=== PATIENT | male | born 1975 | race Caucasian/White ===

== ENCOUNTER 2023-11-20 00:06 | Emergency (ER) | payer OTHER ==
[2023-11-20 01:55] LABS: Absolute Basophils 0.1 K/uL (0-0.5); Absolute Eosinophils 0.2 K/uL (0-0.5); Absolute Lymphocytes (CBC) 1.8 K/uL (0.7-4.9); Absolute Monocytes 0.7 K/uL (0.1-1.3); Absolute Neutrophil 4.7 K/uL (1.8-8.0); Basophils % 1.3 % (0-1.3); Eosinophils % 2.9 % (0-4.4); Hematocrit 47.6 % (39.6-49.0); Hemoglobin 16.6 g/dL (13.6-17.9); Lymphocytes % 24.2 % (15.3-44.8); MCH 30.8 pg (27.0-35.0); MCHC 34.8 g/dL (32.0-36.0); MCV 88.7 fL (80-100); MPV 7.8 fL (7.6-11.3); Neutrophils % 62.6 % (41.7-73.7); Nucleated Red Blood Cells % 0.2 % (0-0); Platelets 242 thou/uL (152-406); Protime INR 1.07; RBC Red Blood Cell Count 5.37 M/uL (4.33-5.43)
[2023-11-20 02:09] LABS: ALT/SGPT 80 U/L (16-61); AST/SGOT 43 U/L (15-37); Albumin 3.8 g/dL (3.4-5.0); Albumin/Globulin Ratio 1.1 (1.1-1.8); Alkaline Phosphatase 91 U/L (45-117); Anion Gap 10.8 mEq/L (5.0-15.0); BUN Blood Urea Nitrogen 17 mg/dL (7-18); Bicarbonate 24 mEq/L (21-32); Bilirubin Direct 0.2 mg/dL (0-0.2); Bilirubin Indirect, Calculated 0.6 mg/dL (0.2-0.8); Bilirubin Total 0.8 mg/dL (0.2-1.0); Globulin 3.6 g/dL (2.3-3.5); Glomerular Filtration Rate 68 ml/min (=/>90); Glucose Level 141 mg/dL (74-106); Potassium 3.8 mEq/L (3.5-5.1); Protein, Total 7.4 g/dL (6.4-8.2); Sodium Level 136 mEq/L (136-145); Troponin High Sensitivity 7.2 pg/mL (<58.9)
[2023-11-20] MEDS ORDERED: lisinopriL 20 MG TAB ONE (02:18)
[2023-11-20] MEDS ORDERED: HYDRALAZINE HCL 10 MG TABLET ONE (02:18)
[2023-11-20] MEDS ORDERED: HYDRALAZINE HCL 20 MG/ML VIAL ONE (02:18)
[2023-11-20] MEDS ORDERED: AMLODIPINE 10 MG TAB ONE (02:18)
--- NOTE | 2023-11-20 02:23 | EDPHYS ---
Physician Documentation [facility] – [place], [place] Name: Bam Candelario Age: 48 yrs Sex: Male : 1975 Arrival Date: 11/20/2023 Time: 00:06 Bed 11 Private MD: PEPE Physician Usama Berry HPI: 11/19 01:57 This 48 yrs old Male presents to ER via Ambulatory with complaints of High yesica Blood Pressure. 01:57 The patient has elevated blood pressure and discovered this at home, with a home yesica device. Onset: The symptoms/episode began/occurred 3 day(s) ago. Modifying factors: The symptoms are aggravated by activity, The symptoms are alleviated by remaining still. Associated signs and symptoms: Pertinent positives: dizziness, headache. Severity of symptoms: At its worst the blood pressure was moderate, in the emergency department the blood pressure is unchanged. The patient has experienced similar episodes in the past, multiple times. hennessy, out of meds. Historical: - Allergies: 00:36 No Known Allergies; jb4 - PMHx: 00:36 HTN; kidney stones; jb4 - PSHx: 00:36 Kidney stone removal, stent placed; jb4 - Immunization history:: Adult Immunizations up to date. - Infectious Disease History:: Denies. - Social history:: Smoking status: Patient reports use of chewing tobacco. ROS: 01:58 Constitutional: Negative for fever, chills, and weight loss, Eyes: Negative for injury, yesica pain, redness, and discharge, ENT: Negative for injury, pain, and discharge, Neck: Negative for injury, pain, and swelling, Cardiovascular: Negative for chest pain, palpitations, and edema, Respiratory: Negative for shortness of breath, cough, wheezing, and pleuritic chest pain, Abdomen/GI: Negative for abdominal pain, nausea, vomiting, diarrhea, and constipation, Back: Negative for injury and pain, : Negative for injury, bleeding, discharge, and swelling, MS/Extremity: Negative for injury and deformity, Skin: Negative for injury, rash, and discoloration, Psych: Negative for depression, anxiety, suicide ideation, homicidal ideation, and hallucinations, Allergy/Immunology: Negative for hives, rash, and allergies, Endocrine: Negative for neck swelling, polydipsia, polyuria, polyphagia, and marked weight changes, Hematologic/Lymphatic: Negative for swollen nodes, abnormal bleeding, and unusual bruising, :58 Neuro: Positive for headache, Exam: :58 Constitutional: This is a well developed, well nourished patient who is awake, alert, yesica and in no acute distress. Head/Face: Normocephalic, atraumatic. Eyes: Pupils equal round and reactive to light, extra-ocular motions intact. Lids and lashes normal. Conjunctiva and sclera are non-icteric and not injected. Cornea within normal limits. Periorbital areas with no swelling, redness, or edema. ENT: Nares patent. No nasal discharge, no septal abnormalities noted. Tympanic membranes are normal and external auditory canals are clear. Oropharynx with no redness, swelling, or masses, exudates, or evidence of obstruction, uvula midline. Mucous membranes moist. Neck: Trachea midline, no thyromegaly or masses palpated, and no cervical lymphadenopathy. Supple, full range of motion without nuchal rigidity, or vertebral point tenderness. No Meningismus. Chest/axilla: Normal chest wall appearance and motion. Nontender with no deformity. No lesions are appreciated. Cardiovascular: Regular rate and rhythm with a normal S1 and S2. No gallops, murmurs, or rubs. Normal PMI, no JVD. No pulse deficits. Respiratory: Lungs have equal breath sounds bilaterally, clear to auscultation and percussion. No rales, rhonchi or wheezes noted. No increased work of breathing, no retractions or nasal flaring. Abdomen/GI: Soft, non-tender, with normal bowel sounds. No distension or tympany. No guarding or rebound. No evidence of tenderness throughout. Back: No spinal tenderness. No costovertebral tenderness. Full range of motion. Male : Normal genitalia with no discharge or lesions. Skin: Warm, dry with normal turgor. Normal color with no rashes, no lesions, and no evidence of cellulitis. MS/ Extremity: Pulses equal, no cyanosis. Neurovascular intact. Full, normal range of motion. Neuro: Awake and alert, GCS 15, oriented to person, place, time, and situation. Cranial nerves II-XII grossly intact. Motor strength 5/5 in all extremities. Sensory grossly intact. Cerebellar exam normal. Normal gait. Psych: Awake, alert, with orientation to person, place and time. Behavior, mood, and affect are within normal limits. 01:58 ECG was reviewed by the Attending Physician. Vital Signs: 00:34 BP 155 / 104; Pulse 79; Resp 16; Temp 97.9(TE); Pulse Ox 96% on R/A; Weight 104.33 kg jb4 (R); Height 6 ft. 1 in. (R); Pain 5/10; 02:00 BP 145 / 100; Pulse 63; Resp 17; Pulse Ox 100% on R/A; jb4 00:34 Body Mass Index 30.34 (104.33 kg, 185.42 cm) jb4 00:34 Pain Scale: Adult jb4 MDM: 00:33 Patient medically screened. [facility] 02:09 Differential diagnosis: hypertensive crisis, Malignant HTN, CVA, intracerebral yesica hemorrhage. Data reviewed: vital signs, nurses notes, lab test result(s), EKG, radiologic studies, plain films. Consideration of Admission/Observation Escalation of care including admission/observation considered. I considered the following discharge prescriptions or medication management in the emergency department Medications were administered in the Emergency Department. See MAR. Independent interpretation of the following test(s) in the Emergency Department EKG: See my EKG interpretation above. Test considered but Not performed: Ultrasound no 2 d echo. Historians other than the Patient: pt welll informed. Care significantly affected by the following chronic conditions: Hypertension, Obesity, kidney stones. 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 11/19 00:27 Order name: Basic Metabolic Panel; Complete Time: 02:38 yesica 11/19 00:27 Order name: CBC with Diff; Complete Time: 02:23 yesica 11/19 00:27 Order name: LFT's; Complete Time: 02:38 11/19 00:27 Order name: Magnesium; Complete Time: 02:38 11/19 00:27 Order name: NT PRO-BNP; Complete Time: 02:38 yesica 11/19 00:27 Order name: PT-INR; Complete Time: 01:57 11/19 00:27 Order name: Troponin HS; Complete Time: 02:38 [facility] 11/19 00:27 Order name: XRAY Chest (1 view) [facility] 11/19 00:27 Order name: EKG; Complete Time: 00:27 [facility] 11/19 00:27 Order name: Cardiac monitoring; Complete Time: 02:09 [facility] 11/19 00:27 Order name: EKG - Nurse/Tech; Complete Time: 02:09 [facility] 11/19 00:27 Order name: IV Saline Lock; Complete Time: 02:09 [facility] 11/19 00:27 Order name: Labs collected and sent; Complete Time: 02:09 [facility] 11/19 00:27 Order name: O2 Per Protocol; Complete Time: 02:13 [facility] 11/19 00:27 Order name: O2 Sat Monitoring; Complete Time: 02:13 [facility] EC:58 Rate is 61 beats/min. Rhythm is regular. QRS [place] is Normal. ME interval is normal. QRS yesica interval is normal. QT interval is normal. No Q waves. T waves are Normal. No ST changes noted. Clinical impression: NSR w/ Non-specific ST/T Changes and No evidence of ischemia. Interpreted by me. Reviewed by me. Administered Medications: 02:29 Not Given (Physician Discretion): [id number] mg IVP once pc2 02:29 Drug: hydrALAZINE PO 10 mg PO once Route: PO; pc2 02:29 Drug: Norvasc PO 10 mg PO once Route: PO; pc2 02:29 Drug: Lisinopril PO 20 mg PO once Route: PO; pc2 Disposition Summary: 11/20/23 02:23 Discharge Ordered Notes: Location: Home yesica Problem: new yesica Symptoms: have improved yesica Condition: Fair yesica Diagnosis - Essential (primary) hypertension yesica Followup: yesica - With: Private Physician - When: 2 - 3 days - Reason: Recheck today's complaints, Continuance of care, Re-evaluation by your physician Followup: yesica - With: Christiano Humphreys MD - When: 2 - 3 days - Reason: Recheck today's complaints, Re-evaluation by your physician Discharge Instructions: - Discharge Summary Sheet yesica - Hypertension, Adult yesica - Hypertension, Adult, [id number] yesica - How to Take Your Blood Pressure, [id number] yesica - Aspirin and Your Heart yesica - Managing Your Hypertension yesica Forms: - Medication Reconciliation Form yesica - Antibiotic Education yesica - Prescription Opioid Use yesica - Patient Portal Instructions yesica - Leadership Thank You Letter yesica Prescriptions: - Norvasc 10 mg Oral Tablet - take 1 tablet ORAL route once daily; 30 tablet; Refills: 0, Product Selection yesica Permitted - Lisinopril 20 mg Oral Tablet - take 1 tablet ORAL route once daily; 20 tablet; Refills: 0, Product Selection yesica Permitted Signatures: Dispatcher [employer] Usama Flores MD MD cha Bryson, James, RN RN jb4 Angelica Mercer, RN RN pc2
--- NOTE | 2023-11-20 02:23 | ER ---
Nurse's Notes [facility] Name: Bam Candelario Age: 48 yrs Sex: Male : 1975 Arrival Date: 11/20/2023 Time: 00:06 Bed 11 Private MD: Diagnosis: Essential (primary) hypertension Presentation: 11/19 00:34 Chief complaint: Patient states: I noticed I had high blood pressure with blurry vision jb4 and headache that started 2 hours ago. I have B/p meds but have been out and don't have a pcp. Coronavirus screen: At this time, the client does not indicate any symptoms associated with coronavirus-19. Ebola Screen: No symptoms or risks identified at this time. Initial Sepsis Screen: Does the patient meet any 2 criteria? No. Patient's initial sepsis screen is negative. Does the patient have a suspected source of infection? No. Patient's initial sepsis screen is negative. Risk Assessment: Do you want to hurt yourself or someone else? Patient reports no desire to harm self or others. Onset of symptoms was November 20, 2023. Transition of care: patient was not received from another setting of care. 00:34 Method Of Arrival: Ambulatory jb4 00:34 Acuity: GALA 3 jb4 Triage Assessment: 00:36 General: Appears in no apparent distress. uncomfortable, Behavior is calm, cooperative, jb4 appropriate for age. Pain: Complains of pain in forehead and left anglican Pain does not radiate. Pain currently is 5 out of 10 on a pain scale. Neuro: Level of Consciousness is awake, alert, obeys commands, Oriented to person, place, time, situation. Cardiovascular: Patient's skin is warm and dry. Respiratory: Airway is patent Respiratory effort is even, unlabored, Respiratory pattern is regular, symmetrical. Derm: Skin is intact, Skin is pink, warm \T\ dry. Musculoskeletal: Circulation, motion, and sensation intact. Range of motion: intact in all extremities. Historical: - Allergies: 00:36 No Known Allergies; jb4 - PMHx: 00:36 HTN; kidney stones; jb4 - PSHx: 00:36 Kidney stone removal, stent placed; jb4 - Immunization history:: Adult Immunizations up to date. - Infectious Disease History:: Denies. - Social history:: Smoking status: Patient reports use of chewing tobacco. Screenin:00 [facility] ED Fall Risk Assessment (Adult) History of falling in the last 3 months, jb4 including since admission No falls in past 3 months (0 pts) Confusion or Disorientation No (0 pts) Intoxicated or Sedated No (0 pts) Impaired Gait No (0 pts) Mobility Assist Device Used No (0 pt) Altered Elimination No (0 pt) Score/Fall Risk Level 0 - 2 = Low Risk Oriented to surroundings, Maintained a safe environment. Abuse screen: Denies threats or abuse. Nutritional screening: No deficits noted. Tuberculosis screening: No symptoms or risk factors identified. Assessment: 02:30 Reassessment: Patient appears in no apparent distress at this time. Patient and/or jb4 family updated on plan of care and expected duration. Pain level reassessed. Patient is alert, oriented x 3, equal unlabored respirations, skin warm/dry/pink. Vital Signs: 00:34 BP 155 / 104; Pulse 79; Resp 16; Temp 97.9(TE); Pulse Ox 96% on R/A; Weight 104.33 kg jb4 (R); Height 6 ft. 1 in. (R); Pain 5/10; 02:00 BP 145 / 100; Pulse 63; Resp 17; Pulse Ox 100% on R/A; jb4 00:34 Body Mass Index 30.34 (104.33 kg, 185.42 cm) jb4 00:34 Pain Scale: Adult jb4 ED Course: 00:09 Patient arrived in ED. jj6 00:27 Usama Berry MD is Attending Physician. yesica 00:36 Triage completed. jb4 00:36 Arm band placed on right wrist. jb4 01:10 XRAY Chest (1 view) In Process Unspecified. EDMS 01:38 Inserted saline lock: 20 gauge in right forearm, using aseptic technique. Blood oe collected. Flushed with 10 mL NS. 02:09 Basic Metabolic Panel Sent. oe 02:09 LFT's Sent. oe 02:10 Magnesium Sent. oe 02:10 NT PRO-BNP Sent. oe 02:10 Troponin HS Sent. oe 02:23 Christiano Humphreys MD is Referral Physician. yesica 03:00 Patient has correct armband on for positive identification. Bed in low position. Call jb4 light in reach. Side rails up X 1. Provided Education on: discharge instructions.. 03:00 No provider procedures requiring assistance completed. IV discontinued, intact, jb4 bleeding controlled, No redness/swelling at site. Pressure dressing applied. Administered Medications: : Not Given (Physician Discretion): [id number] mg IVP once pc2 : Drug: hydrALAZINE PO 10 mg PO once Route: PO; pc2 : Drug: Norvasc PO 10 mg PO once Route: PO; pc2 : Drug: Lisinopril PO 20 mg PO once Route: PO; pc2 Medication: 02:00 VIS not applicable for this client. jb4 Outcome: 02:23 Discharge ordered by . yesica 03:00 Discharged to home ambulatory, jb4 03:00 Condition: stable 03:00 Discharge instructions given to patient, Instructed on discharge instructions, follow up and referral plans. medication usage, Demonstrated understanding of instructions, follow-up care, medications, Prescriptions given X 2, 03:10 Patient left the ED. jb4 Signatures: Dispatcher [employer] EDMS Usama Berry MD MD cha Bryson, James, RN RN jb4 Robert Walls Jennifer jj6 Angelica Mercer, RN RN pc2
[2023-11-20 02:35] LABS: NT PRO-BNP < 5 pg/mL (<125)
[2023-11-20 03:29] VITALS: BP 155/104; TEMP 97.9; O2SAT 96
--- NOTE | 2023-11-20 12:07 | EKG ---
Test Date: 2023-11-20 Test Time: 01:25:30 Thermodynamics Engineer: ARMIN MEASUREMENT RESULTS: Intervals: Rate: 61 IA: 182 QRSD: 78 QT: 390 QTc: 392 [place]: P: 47 IA: 182 QRS: 66 T: 40 INTERPRETIVE STATEMENTS: Normal sinus rhythm Normal ECG No previous ECG available for comparison Electronically Signed On 11-20-23 12:05:56 CDT by Eric Waldron
--- NOTE | 2023-11-20 15:48 | RAD REPORT ---
EXAM DESCRIPTION: XR Chest, 1 View CLINICAL HISTORY: The patient is 48 years old and is Male; COUGH TECHNIQUE: Frontal view of the chest. COMPARISON: No relevant prior studies available. FINDINGS: LUNGS: Unremarkable. No consolidation. PLEURAL SPACE: Unremarkable. No pneumothorax. HEART: Unremarkable. No cardiomegaly. MEDIASTINUM: Unremarkable. Normal mediastinal contour. BONES/JOINTS: Unremarkable. No acute fracture. UPPER ABDOMEN: Unremarkable as visualized. IMPRESSION: No acute cardiopulmonary process. Electronically signed by: Violet Pearson MD 11/20/2023 02:25 AM CDT RP Due to temporary technical issues with the PACS/Fluency reporting system, reports are being signed by the in house radiologist without review as a courtesy to ensure prompt reporting. The interpreting r adiologist is fully responsible for the content of the report.
== END 2023-11-20 03:10 | disposition home or self-care (01) ==
LOC: ER 00:06
DX: I10 Essential (primary) hypertension (principal); F17.220 Nicotine dependence, chewing tobacco, uncomplicated
CPT/HCPCS: 36415; 71045; 80048; 80076; 83735; 83880; 84484; 85025; 85610; 93005; 99284; J0360